=== PATIENT | female | born 1935 | race Caucasian/White ===

== ENCOUNTER 2017-04-04 09:18 | Day surgery (SDC) | payer MEDICARE ==
--- NOTE | ~2017-04-04 | EGD ---
EGD REPORT [facility] [address] [place] [address] NAME: ABHIJIT RODRIGUEZ : 35 [place] : [place] [facility] [place] [id number] AGE: 81 ADM/REG DATE : 04/04/17 MR#: [id number] REPORT SERV DATE: 04/04/17 DICTATED BY: MANJULA GUTIERREZ DATE: 04/04/17 REPORT STATUS : Draft TRANSCRIBED BY: [employer] DATE: 04/04/17 [facility] Patient Name: Abhijit Rodriguez Date of : 1935 Attending MD: MANJULA GUTIERREZ MD Procedure Date No Time: 04/04/2017 Procedure: Upper GI endoscopy Indications: Iron deficiency anemia, Diarrhea Referring MD: MARI HINES Medicines: as per anesthesia Complications: No immediate complications. Procedure: Pre-Anesthesia Assessment: - ASA Grade Assessment: III - A patient with severe systemic disease. After obtaining informed consent, the endoscope was passed under direct vision. Throughout the procedure, the patient's blood pressure, pulse, and oxygen saturations were monitored continuously. The GIF [id number] [id number] was introduced through the mouth, and advanced to the third part of duodenum. The upper GI endoscopy was accomplished without difficulty. The patient tolerated the procedure. Findings: The examined esophagus was normal. A few sessile polyps were found in the gastric body. Biopsies were taken with a cold forceps for histology. The cardia and gastric fundus were normal on retroflexion. The examined duodenum was normal. Biopsies were taken with a cold forceps for histology. Impression: - Normal esophagus. - A few gastric polyps. Biopsied. - Normal examined duodenum. Biopsied. Recommendation: - Await pathology results. Procedure Code(s): --- Professional --- 59253, Esophagogastroduodenoscopy, flexible, transoral; with biopsy, single or multiple Diagnosis Code(s): --- Professional --- K31.7, Polyp of stomach and duodenum D50.9, Iron deficiency anemia, unspecified R19.7, Diarrhea, unspecified EGD REPORT [facility] [address] [place]. [address] NAME: ABIHJIT RODRIGUEZ : [birth year] [place] : [facility] [place]#: [id number] AGE: 81 ADM/REG DATE : 04/04/17 MR#: [id number] REPORT SERV DATE: 04/04/17 DICTATED BY: MANJULA GUTIERREZ. DATE: 04/04/17 REPORT STATUS : Draft TRANSCRIBED BY: [employer] DATE: 04/04/17 CPT copyright 2013 [employer]. All rights reserved. The codes documented in this report are preliminary and upon guest request runner review may be revised to meet current compliance requirements. MANJULA GUTIERREZ MD 04/04/2017 12:54 PM This report has been signed electronically. Number of Addenda: 0 Note Initiated On: 04/04/2017 12:29 PM Scope Withdrawal Time 0 hours 0 minutes 0 seconds [address] [place] [address]
--- NOTE | ~2017-04-04 | EGD ---
EGD REPORT [facility] [address] [place]. [address] NAME: ABHIJIT RODRIGUEZ : [birth year] STATUS : [facility] [place] PAT#: [id number] AGE: 81 ADM/REG DATE : 04/04/17 MR#: [id number] REPORT SERV DATE: 04/04/17 DICTATED BY: MANJULA GUTIERREZ DATE: 04/04/17 REPORT STATUS : Draft TRANSCRIBED BY: [employer] DATE: 04/04/17 [facility] Patient Name: Abhijit Rodriguez Date of : 1935 Attending MD: MANJULA GUTIERREZ MD Procedure Date No Time: 04/04/2017 Procedure: Colonoscopy Indications: Clinically significant diarrhea of unexplained origin, Iron deficiency anemia, Personal history of malignant neoplasm of the colon Referring MD: MARI HINES Medicines: as per anesthesia Complications: No immediate complications. Procedure: Pre-Anesthesia Assessment: - ASA Grade Assessment: III - A patient with severe systemic disease. After I obtained informed consent, the scope was passed under direct vision. Throughout the procedure, the patient's blood pressure, pulse, and oxygen saturations were monitored continuously. The PCF [id number] was introduced through the anus and advanced to the cecum, identified by appendiceal orifice and ileocecal valve. The colonoscopy was performed without difficulty. The patient tolerated the procedure. The quality of the bowel preparation was adequate to identify polyps. Findings: The perianal and digital rectal examinations were normal. There was evidence of a prior end-to-end colo-rectal anastomosis in the recto-sigmoid colon. This was patent. This was characterized by healthy appearing mucosa. This was traversed. A sessile polyp was found in the ascending colon. The polyp was 5 mm in size. The polyp was removed with a cold biopsy forceps. Resection and retrieval were complete. Four biopsies were obtained in the rectum and in the ascending colon with cold forceps for histology. Impression: - Patent end-to-end colo-rectal anastomosis. - One 5 mm polyp in the ascending colon. Resected and retrieved. - Four biopsies were obtained in the rectum and in the ascending colon. Recommendation: - Await pathology results. EGD REPORT [address] [address] NAME: ABHIJIT RODRIGUEZ : 35 STATUS : [facility] [place] PAT#: [id number] AGE: 81 ADM/REG DATE : 04/04/17 MR#: [id number] REPORT SERV DATE: 04/04/17 DICTATED BY: MANJULA GUTIERREZ. DATE: 04/04/17 REPORT STATUS : Draft TRANSCRIBED BY: [employer] DATE: 04/04/17 Procedure Code(s): --- Professional --- 38834, Colonoscopy, flexible, proximal to splenic flexure; with biopsy, single or multiple Diagnosis Code(s): --- Professional --- Z98.0, Intestinal bypass and anastomosis status D12.2, Benign neoplasm of ascending colon R19.7, Diarrhea, unspecified D50.9, Iron deficiency anemia, unspecified Z85.038, Personal history of other malignant neoplasm of large intestine CPT copyright 2013 [employer]. All rights reserved. The codes documented in this report are preliminary and upon [employer] review may be revised to meet current compliance requirements. MANJULA GUTIERREZ MD 04/04/2017 1:19 PM This report has been signed electronically. Number of Addenda: 0 Note Initiated On: 04/04/2017 12:30 PM Scope Withdrawal Time 0 hours 10 minutes 19 seconds [id number] [place] [address]
[~2017-04-04 09:18] MED LIST: BETA-CAROTENE PO; BUM1 PO; CALTRA600D PO; CARDCD180 PO; COQ-10200 MG PO; COUMADIN6 MG PO; COUMADIN7.5 MG PO; COZAAR100 MG PO; CRESTOR20 MG PO; CYANO1000T PO; GLUCOPHAGE1000 MG PO; L40 PO; LANTUS SC; LOTENSIN HCT1 TA3 PO; MULTIPLE VIT PO; NEUR300 PO; NOVOLOG SC; NOVOPEN SC; POTASSIUM GLUCONATE; PRADAXA75 MG PO; PRILO PO; SPIRO25 PO; VIT C PO; VIT E PO; Z300 PO; ZOCOR40 PO
== END 2017-04-04 23:59 | disposition home or self-care (01) ==
LOC: DMU 09:18
PROVIDERS: Internal Medicine Gastroenterology
PROC: 0DB98ZX Excision of Duodenum, Via Natural or Artificial Opening Endoscopic, Diagnostic (ICD-10-PCS; 2017-04-04)
PROC: 0DBK8ZZ Excision of Ascending Colon, Via Natural or Artificial Opening Endoscopic (ICD-10-PCS; principal; 2017-04-04 10:30)
PROC: 0DB68ZX Excision of Stomach, Via Natural or Artificial Opening Endoscopic, Diagnostic (ICD-10-PCS; 2017-04-04 10:30)
DX: K31.7 Polyp of stomach and duodenum (principal); D12.2 Benign neoplasm of ascending colon; K62.1 Rectal polyp; Z98.0 Intestinal bypass and anastomosis status; R19.7 Diarrhea, unspecified; D50.9 Iron deficiency anemia, unspecified; G47.33 Obstructive sleep apnea (adult) (pediatric); E78.00 Pure hypercholesterolemia, unspecified; E11.9 Type 2 diabetes mellitus without complications; I11.0 Hypertensive heart disease with heart failure; I50.9 Heart failure, unspecified; Z85.038 Personal history of other malignant neoplasm of large intestine; Z79.899 Other long term (current) drug therapy; Z79.4 Long term (current) use of insulin; Z79.84 Long term (current) use of oral hypoglycemic drugs
CPT/HCPCS: 82962; 88305; J2370